=== PATIENT | female | born 1960 | race American Indian/Alaskan Native ===

== ENCOUNTER 2016-07-26 09:58 | Emergency (ER) | payer BC, OTHER ==
[2016-07-26 10:24] VITALS: BP 151/83
--- NOTE | 2016-07-26 10:32 | EDM.PDOC ---
ED HPI Trauma - General Chief Complaint: Lower Extremity Injury/Pain Stated Complaint: RIGHT FOOT Time Seen by Provider: 07/26/16 10:27 Source: Reports: Patient History Limitations: Reports: No limitations - History of Present Illness INITIAL COMMENTS - FREE TEXT/NARRATIVE: patient tripped and fell last night. Stepped in a hole and fell forward. She noted mild pain to her foot at that time however this morning she notes increased pain and discomfort to the dorsum of her right foot. Pain with ambulating. Pain with movement. Patient notes bruising to the top of her foot. Occurred When: yesterday Occurred Where: home Method of Injury: fall Severity: mild Pain/Injury Location: Reports: lower extremity, right Consciousness: Reports: no loss of consciousness Associated Symptoms: Reports: no other symptoms Allergies/ADRs: Allergies No Known Allergies Allergy (Verified 07/26/16 10:20) Home Medications: Ambulatory Orders Hydrochlorothiazide 1 tab PO DAILY 07/26/16 [Confirmed 07/26/16] Review of Systems - Review of Systems Review Of Systems: ROS reveals no pertinent complaints other than HPI. Trauma Exam - Physical Exam Exam: See Below Exam Limited By: No limitations General Appearance: Reports: alert, WD/WN, no apparent distress Extremities: Reports: other (tenderness to palpation over the dorsum of the right foot along the fourth and fifth metatarsal. No pain to the base of the fifth metatarsal. Distal toes are normal. No pain to the big toe. Negative ankle exam. Negative squeeze test. No pain to the medial and lateral malleolus. No pain in the Achilles. Mild pain with resisted dorsiflexion. No pain with resisted plantar flexion.) Neurologic: Reports: no motor/sensory deficits, alert, normal mood/affect, oriented x 3 Course - Vital Signs Last Recorded V/S: Last Vital Signs Temp 97.6 F 07/26/16 10:21 Pulse 81 07/26/16 10:21 Resp 20 07/26/16 10:21 BP 151/83 H 07/26/16 10:21 Pulse Ox 100 07/26/16 10:21 - Orders/Labs/Meds Orders: Active Orders 24 hr Category Date Time Status Foot Comp Min 3V Rt [CR] Urgent Exams 07/26/16 10:27 Taken - Re-Assessments/Exams Free Text/Narrative Re-Assessment/Exam: x-ray of theright foot 3 views shows no evidence of fracture or dislocation. Radiology to review 07/26/16 10:44 Departure - Departure Time of Disposition: 10:46 Disposition: Home, Self-Care 01 Condition: good Clinical Impression: Right foot sprain Qualifiers: Encounter type: initial encounter Qualified Code(s): S93.601A - Unspecified sprain of right foot, initial encounter Instructions: Foot Sprain Forms: ED Department Discharge Additional Instructions: may use ibuprofen 200 mg 3 tablets 3 times a day. Apply ice to the foot for 20 minutes once or twice a day. May full weight-bear with no rejections. Recheck as needed. No restrictions with work. Call or return if any problems questions or concerns - My Orders Last 24 Hours: My Active Orders 07/26/16 10:27 Foot Comp Min 3V Rt [CR] Urgent - Assessment/Plan Last 24 Hours: My Active Orders 07/26/16 10:27 Foot Comp Min 3V Rt [CR] Urgent
--- NOTE | 2016-07-27 08:26 | CR ---
Clinical history: 55-year-old female right foot pain. Interpretation: 3 views right foot document.... large heel spur at the insertion plantar aponeurosis base of the os calcis (smaller heel spur appointment coordinator iorly, insertion of the Achilles tendon). Chronic reactive arthritic changes first metatarsophalangeal, all interphalangeal and DIP joints. No sign of foreign body, inflammatory periostitis, right foot fracture or dislocation.
== END 2016-07-26 10:48 | disposition home or self-care (01) ==
LOC: DL.ED 09:58
DX: S93.601A Unspecified sprain of right foot, initial encounter (principal); W01.0XXA Fall on same level from slipping, tripping and stumbling without subsequent striking against object, initial encounter; Y92.009 Unspecified place in unspecified non-institutional (private) residence as the place of occurrence of the external cause
CPT/HCPCS: 73630-RT; 99283

== ENCOUNTER 2017-05-03 05:13 | Day surgery (SDC) | payer BC, OTHER ==
[~2017-05-03 05:13] MED LIST: Dextrose 5%-0.45% NaCl 1,000 ML IV SCH; Midazolam 1 MG/ML 2 ML SDV ONE; Sodium Chloride 0.9% 10 ML Syringe FLUSH PRN; fentaNYL 100 MCG/2 ML SDV ONE
[2017-05-03] MEDS ORDERED: fentaNYL 100 MCG/2 ML SDV IV ONE (05:14)
[2017-05-03] MEDS ORDERED: Midazolam 1 MG/ML 2 ML SDV IV ONE (05:14)
[2017-05-03] MEDS ORDERED: Sodium Chloride 0.9% 10 ML Syringe FLUSH PRN (06:00)
[2017-05-03] MEDS: Dextrose 5%-0.45% NaCl 1,000 ML IV SCH (06:01)
[2017-05-03] MEDS ORDERED: Midazolam 1 MG/ML 2 ML SDV ONE (06:07)
[2017-05-03] MEDS ORDERED: fentaNYL 100 MCG/2 ML SDV ONE (06:07)
[2017-05-03] MEDS: fentaNYL 100 MCG/2 ML SDV IV ONE ×2 (06:32→06:33)
[2017-05-03] MEDS: Midazolam 1 MG/ML 2 ML SDV IV ONE ×2 (06:34)
--- NOTE | 2017-05-03 07:33 | OR ---
DATE: 05/03/2017 PROCEDURE: Esophagogastroduodenoscopy and multiple pinch biopsies. INSTRUMENT USED: GIF-H180 Olympus video panendoscope. PREMEDICATIONS: No oral topical anesthesia used. Fentanyl 100 mcg intravenous, Versed 2 mg intravenous. Nasal O2 cannula. The procedure was done under pulse oximetry, BP recording, and cardiac care unit nurse. INDICATION: The patient with persistent heartburn and upper abdominal pain, unexplained, and not responsive to medical measures. DESCRIPTION OF PROCEDURE: Esophagogastroduodenoscopy is performed for detection of any active erosive lesions, Cunningham esophagus and/or malignancy also under consideration, H. pylori status to be determined, endoscopic hemostasis therapy if needed. The scope was passed with ease. Adequate visualization of the esophagus was made from proximal to distal areas. No upper esophageal lesions identified. No distal esophageal stricture. No uphill or downhill esophageal varices. No Maria Eugenia-Carrington tear. No evidence of erosive esophagitis by Marshall criteria. No esophageal polyp or tumor mass identified. Z-line was seen at around 39 cm distal to the oral verge, configuration consistent with grade 1 by Zapp classification. No proximal gastric varices noted. Gastric fundus examination by retroflexion showed no polypoid lesions. No gastric ulcer, malignant mass, or vascular ectasia identified. Duodenal bulb showed no ulcer. Visualized second part of the duodenum was unremarkable. Multiple pinch biopsies were obtained from the gastric antrum and proximal body and sent for PyloriTek test for H. pylori, and if negative in an hour, the tissue is to be sent for histopathology. No bleeding was noted from any of the visualized areas at the completion of examination. Photographs were taken of the duodenal bulb, gastric antrum, fundus, and distal esophagus. IMPRESSION: Normal study. The patient tolerated the procedure well. [facility] /[id number]
[2017-05-03 08:30] VITALS: BP 125/71
== END 2017-05-03 08:42 | disposition home or self-care (01) ==
LOC: DL.ENDO 05:13
PROVIDERS: ATTEND Internal Medicine Gastroenterology
DX: K31.9 Disease of stomach and duodenum, unspecified (principal); F17.210 Nicotine dependence, cigarettes, uncomplicated; E66.09 Other obesity due to excess calories; E11.9 Type 2 diabetes mellitus without complications; E78.5 Hyperlipidemia, unspecified; Z90.49 Acquired absence of other specified parts of digestive tract
CPT/HCPCS: 43239; 87077; J2250; J3010; J7042